=== PATIENT | male | born 1995 | race Two or more races ===

== ENCOUNTER 2017-03-19 23:18 | Emergency (ER) | payer OTHER ==
[~2017-03-19] VITALS: Ht 170.2 cm; Wt 77.1 kg
[2017-03-19] MEDS ORDERED: TDAP [DIPH/PERTUSSIS/TET] 0.5 ML VIAL IM ONE ×2 (23:30→23:39)
[2017-03-19] MEDS ORDERED: SILVER SULFADIAZINE CREAM 25 GM TUBE TP ONE (23:30)
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
--- NOTE | 2017-03-19 23:35 | NUR ---
PT DENIES ANY EYE PAIN AND BLURRED VISION
[2017-03-19] MEDS ORDERED: SILVER SULFADIAZINE CREAM 25 GM TUBE ONE (23:38)
[2017-03-20] MEDS ORDERED: HYDROCODONE/APAP 5/325MG 1 EACH TABLET PO ONE
[2017-03-20] MEDS ORDERED: HYDROCODONE/APAP 5/325MG 1 EACH TABLET ONE
--- NOTE | 2017-03-20 00:08 | NUR ---
Patient discharged to home in stable condition. Written and verbal after care instructions given. Patient verbalizes understanding of instruction. pt ambulatory with a steady gait. pt instructed pt not to drive. pt verbalize understanding. pt accompanied by mother
[2017-03-20 01:14] VITALS: BP 136/86
== END 2017-03-20 00:08 | disposition home or self-care (01) ==
LOC: ER 23:23
DX: T20.20XA Burn of second degree of head, face, and neck, unspecified site, initial encounter (principal); X12.XXXA Contact with other hot fluids, initial encounter; Y93.89 Activity, other specified; Y92.89 Other specified places as the place of occurrence of the external cause; Y99.8 Other external cause status
CPT/HCPCS: 16020; 90715; 99285; A4606; Z7610